=== PATIENT | female | born 1960 | race African-American/Black ===

== ENCOUNTER 2024-08-10 09:50 | Day surgery (SDC) | payer OTHER ==
[2024-08-05 14:58] VITALS: BMI 35.2
[2024-08-10] MEDS ORDERED: PROPOFOL 80 ML ONE (10:17)
[2024-08-10 11:15] VITALS: RESP 16; TEMP 97.8
[2024-08-10 11:18] VITALS: BP 114/57; PULSE 56
== END 2024-08-10 11:45 | disposition home or self-care (01) ==
LOC: FASU-ENDO 09:50
PROVIDERS: ATTEND Internal Medicine Gastroenterology
PROC: 0DJD8ZZ Inspection of Lower Intestinal Tract, Via Natural or Artificial Opening Endoscopic (ICD-10-PCS; principal; 2024-08-10 10:24)
DX: R15.9 Full incontinence of feces (principal); K57.30 Diverticulosis of large intestine without perforation or abscess without bleeding
CPT/HCPCS: 82962